=== PATIENT | male | born 1935 | race Caucasian/White ===

== ENCOUNTER → 2016-11-29 | Outpatient (CLI) | payer MEDICARE, BC ==
[~2016-11-29] MED LIST: ADVAIR INH; ADVICOR 5001 BOTTLE PO; ASPIRIN81 M1 PO; CENTRUM SILVER PO; CIPRO PO; ETHAMBUTOL HYD400 MG PO; LOPRESSOR PO; PACERONE100 MG PO; PLAVIX PO; PRINIVIL5 MG PO; PROTONIX PO; RIFAMPIN300 MG PO; WELLBUTRIN XL150 MG PO; ZITHROMAX PO; ZYRTEC PO
--- NOTE | ~2016-11-29 | CT57 ---
[facility] A Service of [facility] RADIOLOGY TEXT RESULTS PATIENT: [facility]OR[facility] WONG [facility] #: [id number] AGE: [address]: Leandro Kong SEX: M ORDER DR: [id number] [facility] [address] [place], [place] [address] [id number] O MR#: [id number] Acc #: [id number] NAME: LORRIE WONG. : 1935 SEX: M STUDY DATE/TIME: 11/29/2016 14:17 UNIT: [facility] ROOM: STUDY DESCRIPTION: CT Chest Wo Cont Attending Physician: Leandro Kong M.D. Referring Physician: Leandro Kong M.D. Ordering Physician: Leandro Kong M.D. Primary Care Physician: Jesús Wade M.D. MEDICAL IMAGING REPORT This report is preliminary unless electronic signature is present EXAM CT chest without contrast INDICATIONS Followup pulmonary nodule. TECHNIQUE CT of the chest was performed without contrast. Coronal and sagittal reformatted images were obtained. This CT exam was performed with one or more of the following radiation dose reduction techniques: automatic exposure control, adjustment of mA and/or kV according to patient size, and iterative reconstruction. COMPARISON STUDIES Comparison with 05/27/2016. FINDINGS Stable background emphysema. Stable scarring in the right lung apex and also within the left lung apex. There is multifocal nodularity bilaterally most of it in a tree-in-bud configuration and most consistent with an infectious/inflammatory process. The appearance of the right upper lobe is not significantly changed. There is some mild increased nodularity medially in the right middle lobe. On the right lower lobe, there is increased in tree-in-bud nodularity and also areas of ground glass opacification likely worsening infectious/inflammatory process. More discrete nodules in the right lower lobe are measuring 8 mm on image 104 and 7 mm on image 101. In the left, there is some increased tree-in-bud nodularity medially in the left upper lobe. In the left lower lobe, there is increased nodularity in tree-in-bud fashion at the lung base and also increased STS. [facility] A Service of [facility] RADIOLOGY TEXT RESULTS PATIENT: LORRIE WONG LOCATION: [facility] : 35 UNIT #: [id number] AGE: [address]: Leandro Kong SEX: M ORDER DR: areas of ground glass opacification likely worsening infectious/inflammatory process. Stable dilatation of the aortic root measuring about 4.1-4.2 cm in greatest dimension. There is trace pleural fluid on the right. There is no suspicious lymphadenopathy. Coronary artery calcification. Limited imaging of the upper abdomen shows tiny bilateral nonobstructing kidney stones. The bone windows are unremarkable. IMPRESSION 1. There is increased nodularity mainly within the lower lobes and for the most part in a tree-in-bud fashion most consistent with worsening infectious or inflammatory process. There is also some increased ground-glass opacities as well. I would suggest a followup chest CT in 3 months to document stability or clearing of these new findings. 2. Stable dilated aortic root. Dictated by... Abad Thornton M.D. THIS IS AN ELECTRONICALLY VERIFIED REPORT Abad Thornton M.D. at 12/01/2016 4:59 PM ANEL/marty TD: 11/30/2016 14:59 JOB #: [id number] MEDICAL IMAGING REPORT Page 1 of 1 COPY
== END | disposition home or self-care (01) ==
LOC: CCAT 14:00
DX: R91.8 Other nonspecific abnormal finding of lung field (principal); I77.810 Thoracic aortic ectasia
CPT/HCPCS: 71250